=== PATIENT | female | born 1990 | race African-American/Black ===

== ENCOUNTER 2016-08-21 23:31 | Emergency (ER) | payer OTHER ==
[~2016-08-21] VITALS: Ht 144.8 cm; Wt 63.0 kg
[2016-08-22 01:16] LABS: APPEARANCE,URINE CLOUDY (CLEAR); GLUCOSE, URINE (UA) NEGATIVE (NEGATIVE); KETONES,URINE TRACE mg/dL (NEGATIVE); LEUKOCYTE ESTERASE ,URINE NEGATIVE (NEGATIVE); OCCULT BLOOD,URINE MODERATE (NEGATIVE); PH,URINE 6.5 (5.0-8.0); PROTEIN,URINE SEE CONFIRM (NEGATIVE)
[2016-08-22 01:19] LABS: ADD UA MICROSCOPIC YES
[2016-08-22 01:31] LABS: SQUAMOUS EPITHELIAL CELL,UR Moderate /LPF (None Seen)
[2016-08-22 01:34] LABS: SULFOSALICYLIC ACID,URINE 1+ (Negative)
[2016-08-22] MEDS ORDERED: TraMADol HCL 50 MG TABLET PO ONE (02:15)
[2016-08-22 02:42] VITALS: BP 126/76
== END 2016-08-22 02:43 | disposition home or self-care (01) ==
LOC: EMS 23:32
DX: J40 Bronchitis, not specified as acute or chronic (principal)
CPT/HCPCS: 87086; 93005; 99285

== ENCOUNTER 2017-10-02 08:15 | Emergency (ER) | payer SELFPAY ==
[~2017-10-02] VITALS: Ht 144.8 cm; Wt 59.0 kg
[2017-10-02 08:51] VITALS: BP 139/73
== END 2017-10-02 09:56 | disposition home or self-care (01) ==
LOC: EMS 08:21
DX: N39.0 Urinary tract infection, site not specified (principal); H10.9 Unspecified conjunctivitis; J06.9 Acute upper respiratory infection, unspecified; F17.210 Nicotine dependence, cigarettes, uncomplicated; Z91.013 Allergy to seafood
CPT/HCPCS: 99283

== ENCOUNTER 2018-11-11 09:21 | Emergency (ER) | payer MEDICAID ==
[~2018-11-11] VITALS: Ht 144.8 cm; Wt 72.7 kg
[2018-11-11 10:26] LABS: APPEARANCE,URINE CLEAR (CLEAR); BILIRUBIN,URINE NEGATIVE (NEGATIVE); GLUCOSE, URINE (UA) NEGATIVE (NEGATIVE); KETONES,URINE NEGATIVE (NEGATIVE); LEUKOCYTE ESTERASE ,URINE SMALL (NEGATIVE); NITRATE,URINE NEGATIVE (NEGATIVE); PROTEIN,URINE TRACE (NEGATIVE); UROBILINOGEN,URINE 0.2 mg/dL (<=1.0)
[2018-11-11 10:29] LABS: BASOPHILS % (AUTO) 0.6 % (0.0-2.0); EOSINOPHILS % (AUTO) 1.1 % (1.0-6.0); HEMATOCRIT 41.4 % (36-46); HEMOGLOBIN 13.7 g/dL (12.0-16.0); LYMPHOCYTES # (AUTO) 1.9 K/uL (1.0-4.8); LYMPHOCYTES % (AUTO) 29.8 % (22.0-44.0); MEAN CORPUSCULAR HEMOGLOBIN 28.9 pg (26.0-34.0); MEAN CORPUSCULAR HGB CONC 33.1 G/dL (31.0-37.0); MEAN CORPUSCULAR VOLUME 87 fL (80-100); MONOCYTES # (AUTO) 0.6 K/uL (0.1-1.0); MONOCYTES % (AUTO) 9.7 % (2.0-9.0); NEUTROPHILS # (AUTO) 3.7 K/uL (1.8-7.7); NEUTROPHILS % (AUTO) 58.8 % (40.0-70.0); PLATELET COUNT (AUTO) 308 K/uL (150-450); RED BLOOD CELL COUNT(AUTO) 4.74 MIL/uL (4.00-5.20); RED CELL DISTRIBUTION WIDTH 13.3 % (11.5-14.5)
[2018-11-11] MEDS ORDERED: LIDOCAINE 5% TRANSDERMAL PATCH TD ONE (10:30)
[2018-11-11 10:33] LABS: ANION GAP 5 mmol/L (8-16); CARBON DIOXIDE 30 mmol/L (22-29); CHLORIDE 103 mmol/L (98-107); CREATININE 0.72 mg/dL (0.60-1.30); GLOMERULAR FILTR. RATE CALC > 60 mL/min (>60); GLUCOSE,RANDOM 86 mg/dL (70-110); SODIUM SERUM 138 mmol/L (136-145); UREA NITROGEN, BLOOD 10 mg/dL (7-18)
[2018-11-11 10:34] LABS: OCCULT BLOOD,URINE SMALL (NEGATIVE)
[2018-11-11 10:35] LABS: BACTERIA,URINE Few /HPF (None Seen); SQUAMOUS EPITHELIAL CELL,UR Rare /LPF (None Seen)
[2018-11-11 11:05] VITALS: BP 117/78
== END 2018-11-11 11:14 | disposition home or self-care (01) ==
LOC: EMS 09:21
DX: N39.0 Urinary tract infection, site not specified (principal); F17.210 Nicotine dependence, cigarettes, uncomplicated; Z91.013 Allergy to seafood
CPT/HCPCS: 99406